=== PATIENT | female | born 1980 | race Caucasian/White ===

== ENCOUNTER 2019-11-12 11:39 | Inpatient (IN) | payer MEDICAID ==
[~2019-11-12] VITALS: Ht 162.6 cm; Wt 81.6 kg
[2019-11-12] MEDS ORDERED: DEXT 5%/LR + PITOCIN 20UNITS/L 1,000 ML IV SCH (11:58)
[2019-11-12] MEDS ORDERED: ACETAMINOPHEN WITH CODEINE 300/30MG TABLET PO PRN (12:00)
[2019-11-12] MEDS ORDERED: GLYCERIN/WITCH HAZEL LEAF MEDICATED PAD TOP PRN (12:00)
[2019-11-12] MEDS ORDERED: LANOLIN OINT 7GM TUBE TOP PRN (12:00)
[2019-11-12] MEDS ORDERED: DIPHENHYDRAMINE 25MG CAPSULE PO PRN (12:00)
[2019-11-12] MEDS ORDERED: RHO(D) IMMUNE GLOBULIN 300 MCG/SYR IM PRN (12:00)
[2019-11-12] MEDS ORDERED: HYDROCORTISONE 10MG TABLET PO PRN (12:00)
[2019-11-12] MEDS ORDERED: HEMORRHOIDAL SUPP PR PRN (12:00)
[2019-11-12] MEDS ORDERED: IBUPROFEN 400MG TABLET PO PRN (12:00)
[2019-11-12] MEDS ORDERED: METHYLERGONOVINE MALEATE 0.2 MG/ML IM PRN (12:15)
[2019-11-12] MEDS: IBUPROFEN 800MG TABLET PO PRN ×2 (12:18→20:20)
[2019-11-12 12:20] LABS: BASOPHILS % 0.3 % (0.0-2.0); EOSINOPHILS % 0.9 % (0.0-5.0); HEMATOCRIT. 32.2 % (36.0-48.0); HEMOGLOBIN. 10.9 g/dL (12.0-16.0); LYMPHOCYTES % 8.4 % (20.0-50.0); MEAN CORPUSCULAR HEMOGLOBIN 31.2 pg (28.0-32.0); MEAN CORPUSCULAR VOLUME 92.2 fL (81.0-99.0); MEAN PLATELET VOLUME 7.9 fl (7.4-10.4); MONOCYTES % 3.9 % (2.0-8.0); NEUTROPHILS % 86.5 % (40.0-76.0); PLATELET 277 x1000/uL (130-400); RED BLOOD CELL COUNT 3.49 mill/uL (4.2-5.4); RED CELL DISTRIBUTION WIDTH 13.9 % (11.6-14.6)
[2019-11-12 13:30] VITALS: BP 105/49
[2019-11-12 14:19] LABS: HEPATITIS B SURFACE ANTIGEN NEGATIVE
[2019-11-12 15:00] VITALS: BP 110/72
[2019-11-12] MEDS: METHYLERGONOVINE MALEATE 0.2MG TABLET PO SCH ×2 (15:00→21:11)
[2019-11-12] MEDS: DOCUSATE SODIUM 100MG CAPSULE PO SCH (21:11)
[2019-11-12 21:33] LABS: CLARITY URINE CLEAR (CLEAR); COLOR URINE YELLOW (YELLOW); KETONES URINE NEGATIVE (NEGATIVE); LEUKOCYTE ESTERASE URINE TRACE (NEGATIVE); NITRITE URINE NEGATIVE (NEGATIVE); OCCULT BLOOD URINE 1+ (NEGATIVE); PROTEIN URINE NEGATIVE (NEGATIVE); SPECIFIC GRAVITY URINE 1.012 (1.005-1.030); UROBILINOGEN URINE 0.2 E.U./dL (0.2-1.0)
[2019-11-12 21:48] LABS: *AMPHETAMINES SCREEN URINE NEGATIVE (NEGATIVE); *BARBITURATES SCREEN URINE NEGATIVE (NEGATIVE); *BENZODIAZEPINES SCREEN URINE NEGATIVE (NEGATIVE); *COCAINE SCREEN URINE NEGATIVE (NEGATIVE); METHADONE URINE SCREEN NEGATIVE (NEGATIVE)
[2019-11-12 21:49] LABS: CANNABINOID URINE SCREEN NEGATIVE (NEGATIVE); PHENCYCLIDINE URINE SCREEN NEGATIVE (NEGATIVE)
[2019-11-12 21:51] LABS: OPIATES URINE SCREEN PRESUMTIVE POSITIVE (NEGATIVE)
[2019-11-12 22:00] VITALS: BP 117/80
[2019-11-13] MEDS: IBUPROFEN 800MG TABLET PO PRN ×4 (02:49→21:29)
[2019-11-13 06:00] VITALS: BP 108/59
[2019-11-13 07:30] VITALS: BP 114/77
[2019-11-13] MEDS: PRENATAL VIT/FE FUMARATE/FA TABLET PO SCH (08:53)
[2019-11-13] MEDS: HYDROCORTISONE 10MG TABLET PO SCH (08:53)
[2019-11-13] MEDS: FERROUS SULFATE 325MG TABLET PO SCH ×3 (08:54→17:30)
[2019-11-13] MEDS ORDERED: TETANUS, DIPHTHERIA, PERTUSSIS VAC/PF 0.5ML (>7YR OLD) IM ONE (11:00)
[2019-11-13 16:00] VITALS: BP 113/50
[2019-11-13 20:00] VITALS: BP 106/52
[2019-11-13] MEDS: DOCUSATE SODIUM 100MG CAPSULE PO SCH (21:26)
[2019-11-14 04:00] VITALS: BP 124/75
[2019-11-14] MEDS: IBUPROFEN 800MG TABLET PO PRN (05:39)
[2019-11-14 07:58] VITALS: BP 106/64
[2019-11-14] MEDS ORDERED: BISACODYL 10MG SUPP PR SCH (08:30)
[2019-11-14] MEDS: HYDROCORTISONE 10MG TABLET PO SCH (08:58)
[2019-11-14] MEDS: PRENATAL VIT/FE FUMARATE/FA TABLET PO SCH (08:58)
[2019-11-14] MEDS: FERROUS SULFATE 325MG TABLET PO SCH (08:58)
[2019-11-14 09:10] LABS: HEMOGLOBIN 10.6 g/dL (12.0-16.0); MEAN CORPUSCULAR HEMOGLOBIN 31.7 pg (28.0-32.0); MEAN CORPUSCULAR VOLUME 92.8 fL (81.0-99.0); PLATELET 311 x1000/uL (130-400); RED BLOOD CELL COUNT 3.34 mill/uL (4.2-5.4)
[2019-11-16 04:07] LABS: OPIATES CONFIRMATION URINE Positive (.)
== END 2019-11-14 16:55 | disposition home or self-care (01) | DRG 560 ==
LOC: OBSVTOIN 11:39 → 8 EST LDRP 11:39 → 8EST 12:50
PROVIDERS: ADMIT Specialist; ATTEND Specialist
PROC: 10E0XZZ Delivery of Products of Conception, External Approach (ICD-10-PCS; principal; 2019-11-12)
DX: O32.1XX0 Maternal care for breech presentation, not applicable or unspecified (principal); O60.14X0 Preterm labor third trimester with preterm delivery third trimester, not applicable or unspecified; E27.40 Unspecified adrenocortical insufficiency; O99.324 Drug use complicating childbirth; O99.284 Endocrine, nutritional and metabolic diseases complicating childbirth; F10.20 Alcohol dependence, uncomplicated; O99.02 Anemia complicating childbirth; O62.3 Precipitate labor; O42.913 Preterm premature rupture of membranes, unspecified as to length of time between rupture and onset of labor, third trimester; F11.10 Opioid abuse, uncomplicated; O99.314 Alcohol use complicating childbirth; D64.9 Anemia, unspecified; O99.334 Smoking (tobacco) complicating childbirth; O34.211 Maternal care for low transverse scar from previous cesarean delivery; F17.200 Nicotine dependence, unspecified, uncomplicated; Z37.0 Single live birth; Z3A.29 29 weeks gestation of pregnancy
CPT/HCPCS: 36415; 80305; 80361; 81003; 85025; 85027; 86592; 86703; 86762; 86850; 86900; 87340; 88307; 90715; 99281; 99291; G0378; J2590

== ENCOUNTER 2019-11-12 11:50 | Emergency (ER) | payer MEDICAID | END 2019-11-12 16:35 | disposition home or self-care (01) | LOC: ER 12:12 → SUATTDRO 11-13 01:02 | PROVIDERS: ATTEND Pediatrics Neonatal-Perinatal Medicine | DX: O26.893 Other specified pregnancy related conditions, third trimester (principal); Z3A.29 29 weeks gestation of pregnancy | CPT/HCPCS: 99291 ==